=== PATIENT | male | born 2000 | race Caucasian/White ===

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

== ENCOUNTER 2024-06-26 17:23 | Emergency (ER) | payer MEDICARE, OTHER ==
[~2024-06-26] VITALS: Ht 175.3 cm; Wt 78.0 kg
[~2024-06-26 17:23] MED LIST: DIVA125T2 PO; GABA-1181 PO; OLAN10TA74 PO; PANT-31 PO
[2024-06-26 17:25] VITALS: TEMP 98
[2024-06-26 19:58] VITALS: BP 119/72; PULSE 95; RESP 16; O2SAT 98
[2024-06-26] MEDS: DiphenhydrAMINE HCL 50 MG/ML VIAL IVP ONE (20:53)
[2024-06-26] MEDS: SODIUM CHLORIDE 0.9% 1,000 ML IV ONE (20:53)
[2024-06-26] MEDS: HYDROmorphone HCL 2 MG/ML SYRINGE IVP ONE ×2 (20:54→22:26)
== END 2024-06-26 23:56 | disposition home or self-care (01) ==
LOC: EMS 17:25
DX: E86.0 Dehydration (principal); G89.29 Other chronic pain; F31.9 Bipolar disorder, unspecified; K50.90 Crohn's disease, unspecified, without complications; Z98.890 Other specified postprocedural states; Z66 Do not resuscitate; Z88.1 Allergy status to other antibiotic agents; Z88.5 Allergy status to narcotic agent; Z91.013 Allergy to seafood
CPT/HCPCS: 99284; 96374; 96361; 96375; 96376; J1200; J1171; J7030

== ENCOUNTER 2024-06-27 22:52 | Emergency (ER) | payer MEDICARE, OTHER ==
[~2024-06-27] VITALS: Ht 185.4 cm; Wt 96.0 kg
[2024-06-27 23:08] VITALS: BP 134/92; PULSE 108; RESP 16; TEMP 98.9; O2SAT 98
== END 2024-06-28 02:03 | disposition left against medical advice (07) ==
LOC: EMS 22:52
DX: R10.9 Unspecified abdominal pain (principal); F31.9 Bipolar disorder, unspecified; F43.12 Post-traumatic stress disorder, chronic; K50.90 Crohn's disease, unspecified, without complications; F64.0 Transsexualism; Z88.1 Allergy status to other antibiotic agents; Z88.5 Allergy status to narcotic agent
CPT/HCPCS: 99281; Z7502

== ENCOUNTER 2024-07-24 20:47 | Emergency (ER) | payer MEDICARE, OTHER ==
[~2024-07-24] VITALS: Ht 185.4 cm; Wt 98.0 kg
[2024-07-24 20:49] VITALS: TEMP 99.2
[2024-07-24] MEDS: FentaNYL CITRATE PF 100 MCG/2 ML VIAL IVP ONE (22:41)
[2024-07-24] MEDS: SODIUM CHLORIDE 0.9% 1,000 ML IV ONE (22:41)
[2024-07-24] MEDS: ONDANSETRON HCL 4 MG/2 ML VIAL IVP ONE (22:42)
[2024-07-24 23:17] LABS: BASOPHILS % (AUTO) 1.9 % (0.0-2.0); EOSINOPHILS % (AUTO) 3.5 % (1.0-6.0); HEMATOCRIT 35.4 % (41-53); HEMOGLOBIN 11.1 g/dL (13.5-17.5); LYMPHOCYTES # (AUTO) 2.4 K/uL (1.0-4.8); LYMPHOCYTES % (AUTO) 23.6 % (22.0-44.0); MEAN CORPUSCULAR HEMOGLOBIN 22.2 pg (26.0-34.0); MEAN CORPUSCULAR HGB CONC 31.4 G/dL (31.0-37.0); MEAN CORPUSCULAR VOLUME 71 fL (80-100); MONOCYTES # (AUTO) 0.6 K/uL (0.1-1.0); MONOCYTES % (AUTO) 5.9 % (2.0-9.0); NEUTROPHILS # (AUTO) 6.6 K/uL (1.8-7.7); NEUTROPHILS % (AUTO) 65.1 % (40.0-70.0); PLATELET COUNT (AUTO) 351 K/uL (150-450); RED BLOOD CELL COUNT(AUTO) 5.01 MIL/uL (4.50-5.90); RED CELL DISTRIBUTION WIDTH 18.2 % (11.5-14.5); WHITE BLOOD COUNT (AUTO) 10.1 K/uL (4.5-11.0)
[2024-07-24 23:19] LABS: ANION GAP 11 mmol/L (8-16); CALCIUM, TOTAL 9.3 mg/dL (8.8-10.5); CARBON DIOXIDE 27 mmol/L (22-29); CHLORIDE 99 mmol/L (98-107); CREATININE 0.64 mg/dL (0.60-1.30); GLOMERULAR FILTR. RATE CALC > 60 mL/min (>60); GLUCOSE,RANDOM 188 mg/dL (70-110); LIPASE 20 U/L (16-77); POTASSIUM 3.8 mmol/L (3.5-5.1); SODIUM SERUM 137 mmol/L (136-145); UREA NITROGEN, BLOOD 9 mg/dL (7-18)
[2024-07-24 23:36] LABS: RBC MORPHOLOGY COMMENT ABNORMAL RBC MORPH
[2024-07-24] MEDS ORDERED: ONDA-104 PO (23:49)
[2024-07-24] MEDS ORDERED: PRED-554 PO (23:50)
[2024-07-25 00:15] VITALS: BP 122/82; PULSE 95; RESP 16; O2SAT 98
== END 2024-07-25 00:30 | disposition home or self-care (01) ==
LOC: EMS 20:47
DX: R10.13 Epigastric pain (principal); F31.9 Bipolar disorder, unspecified; Z88.1 Allergy status to other antibiotic agents; Z88.5 Allergy status to narcotic agent; Z91.013 Allergy to seafood; Z88.8 Allergy status to other drugs, medicaments and biological substances
CPT/HCPCS: 99284; 96374; 96361; 96375; 80048; 83690; 85025; 36415; J3010; J2405; J7030

== ENCOUNTER 2024-08-19 17:49 | Emergency (ER) | payer MEDICARE, OTHER ==
[~2024-08-19] VITALS: Ht 185.4 cm; Wt 90.0 kg
[~2024-08-19 17:49] MED LIST changes: +ONDA-104 PO; +PRED-554 PO
[2024-08-19 18:17] VITALS: BP 132/68; PULSE 90; RESP 18; TEMP 97.9; O2SAT 99
== END 2024-08-19 20:24 | disposition left against medical advice (07) ==
LOC: EMS 17:50
DX: R10.84 Generalized abdominal pain (principal); Z53.21 Procedure and treatment not carried out due to patient leaving prior to being seen by health care provider

== ENCOUNTER → 2025-01-17 | Emergency (ER) | payer MEDICARE, OTHER ==
[~2025-01-17] VITALS: Ht 185.4 cm; Wt 80.0 kg
[~2025-01-17] MED LIST changes: +ACET-3385 PO; +DIPH50VI13 IVP; +HYDR2CAR IVP
[2025-01-17 04:16] VITALS: TEMP 98.2
[2025-01-17 06:14] LABS: ALBUMIN 3.5 g/dL (3.4-5.0); BILIRUBIN,DIRECT 0.2 mg/dL (0.00-0.20); BILIRUBIN,TOTAL 0.6 mg/dL (0.1-1.0); TOTAL PROTEIN, SERUM 7.3 g/dL (6.4-8.2)
[2025-01-17 06:17] LABS: BASOPHILS % (AUTO) 1.1 % (0.0-2.0); EOSINOPHILS % (AUTO) 3.7 % (1.0-6.0); HEMATOCRIT 26.8 % (41-53); HEMOGLOBIN 8.4 g/dL (13.5-17.5); LYMPHOCYTES # (AUTO) 1.7 K/uL (1.0-4.8); LYMPHOCYTES % (AUTO) 26.6 % (22.0-44.0); MEAN CORPUSCULAR HEMOGLOBIN 21.3 pg (26.0-34.0); MEAN CORPUSCULAR HGB CONC 31.2 G/dL (31.0-37.0); MEAN CORPUSCULAR VOLUME 68 fL (80-100); MONOCYTES # (AUTO) 0.5 K/uL (0.1-1.0); MONOCYTES % (AUTO) 7.5 % (2.0-9.0); NEUTROPHILS # (AUTO) 3.9 K/uL (1.8-7.7); NEUTROPHILS % (AUTO) 61.1 % (40.0-70.0); PLATELET COUNT (AUTO) 558 K/uL (150-450); RED BLOOD CELL COUNT(AUTO) 3.92 MIL/uL (4.50-5.90); RED CELL DISTRIBUTION WIDTH 19.6 % (11.5-14.5); WHITE BLOOD COUNT (AUTO) 6.4 K/uL (4.5-11.0)
[2025-01-17 06:24] LABS: ANION GAP 13 mmol/L (8-16); CALCIUM, TOTAL 9.1 mg/dL (8.8-10.5); CARBON DIOXIDE 26 mmol/L (22-29); CHLORIDE 100 mmol/L (98-107); GLOMERULAR FILTR. RATE CALC > 60 mL/min (>60); GLUCOSE,RANDOM 213 mg/dL (70-110); POTASSIUM 4.1 mmol/L (3.5-5.1); SODIUM SERUM 139 mmol/L (136-145); UREA NITROGEN, BLOOD 10 mg/dL (7-18)
[2025-01-17] MEDS: ONDANSETRON HCL 4 MG/2 ML VIAL IVP ONE (06:37)
[2025-01-17] MEDS: ACETAMINOPHEN 1000 MG/ISO-OSM 100 ML IV ONE (06:37)
[2025-01-17 06:51] LABS: RBC MORPHOLOGY COMMENT ABNORMAL RBC MORPH
[2025-01-17 07:03] VITALS: BP 123/77; PULSE 73; RESP 15; O2SAT 100
== END | disposition home or self-care (01) ==
LOC: EMS 04:06
DX: R11.2 Nausea with vomiting, unspecified (principal); Z79.52 Long term (current) use of systemic steroids; Z88.1 Allergy status to other antibiotic agents; Z88.5 Allergy status to narcotic agent; Z79.899 Other long term (current) drug therapy
CPT/HCPCS: 99284; 96365; 96375; 80048; 80076; 85025; 36415; J2405; J0131

== ENCOUNTER 2025-02-02 23:30 | Emergency (ER) | payer MEDICARE, OTHER ==
[~2025-02-02] VITALS: Ht 185.4 cm; Wt 98.0 kg
[~2025-02-02 23:30] MED LIST changes: +DIPH50VI13 IM; -DIPH50VI13 IVP; -DIVA125T2 PO; -GABA-1181 PO; -OLAN10TA74 PO; -ONDA-104 PO; -PRED-554 PO
[2025-02-02 23:41] VITALS: BP 125/88; PULSE 88; RESP 16; TEMP 98.2; O2SAT 100
[2025-02-03] MEDS: ACETAMINOPHEN 1000 MG/ISO-OSM 100 ML IV ONE (00:56)
[2025-02-03 01:06] LABS: HEMATOCRIT 28.3 % (41-53); HEMOGLOBIN 8.8 g/dL (13.5-17.5); LYMPHOCYTES # (AUTO) 2.4 K/uL (1.0-4.8); LYMPHOCYTES % (AUTO) 33.4 % (22.0-44.0); MEAN CORPUSCULAR HEMOGLOBIN 21.6 pg (26.0-34.0); MEAN CORPUSCULAR HGB CONC 31.2 G/dL (31.0-37.0); MEAN CORPUSCULAR VOLUME 69 fL (80-100); MONOCYTES # (AUTO) 0.6 K/uL (0.1-1.0); MONOCYTES % (AUTO) 7.9 % (2.0-9.0); NEUTROPHILS # (AUTO) 3.7 K/uL (1.8-7.7); NEUTROPHILS % (AUTO) 52.7 % (40.0-70.0); PLATELET COUNT (AUTO) 259 K/uL (150-450); RED BLOOD CELL COUNT(AUTO) 4.09 MIL/uL (4.50-5.90); RED CELL DISTRIBUTION WIDTH 21.8 % (11.5-14.5)
[2025-02-03 01:18] LABS: CALCIUM, TOTAL 8.6 mg/dL (8.8-10.5); CHLORIDE 102 mmol/L (98-107); CREATININE 0.97 mg/dL (0.60-1.30); GLOMERULAR FILTR. RATE CALC > 60 mL/min (>60); GLUCOSE,RANDOM 300 mg/dL (70-110); SODIUM SERUM 135 mmol/L (136-145); UREA NITROGEN, BLOOD 9 mg/dL (7-18)
[2025-02-03 01:29] LABS: ANION GAP 6 mmol/L (8-16); CARBON DIOXIDE 27 mmol/L (22-29)
[2025-02-03] MEDS: DiphenhydrAMINE HCL 50 MG/ML VIAL IVP ONE (01:45)
== END 2025-02-03 01:53 | disposition home or self-care (01) ==
LOC: EMS 23:36
DX: K94.09 Other complications of colostomy (principal); K50.911 Crohn's disease, unspecified, with rectal bleeding; Z91.013 Allergy to seafood; Z88.1 Allergy status to other antibiotic agents; Z88.5 Allergy status to narcotic agent; Z90.49 Acquired absence of other specified parts of digestive tract; Z79.899 Other long term (current) drug therapy
CPT/HCPCS: 99284; 80048; 85025; 36415; 96365; 96375; J1200; J0131

== ENCOUNTER 2025-07-10 11:12 | Inpatient (IN) | payer MEDICARE, OTHER ==
[~2025-07-10] VITALS: Ht 185.4 cm; Wt 85.0 kg
[~2025-07-10 11:12] MED LIST changes: -ACET-3385 PO; +ACET-66 IV; +DIPH25CA85 IV; -DIPH50VI13 IM; +HYDR250V6 IVP; -HYDR2CAR IVP; -PANT-31 PO; +PANT40VI15 IVP
[2025-07-10] MEDS ORDERED: IOHEXOL 350 MG/ML 100 ML VIAL ONE (11:43)
[2025-07-10] MEDS ORDERED: SODIUM CHLORIDE 0.9% 100 ML ONE (11:43)
[2025-07-10 11:44] LABS: PLATELET COUNT (AUTO) 464 K/uL (150-450); RED BLOOD CELL COUNT(AUTO) 4.77 MIL/uL (4.50-5.90); RED CELL DISTRIBUTION WIDTH 18.5 % (11.5-14.5); WHITE BLOOD COUNT (AUTO) 10.1 K/uL (4.5-11.0)
[2025-07-10 11:54] LABS: CALCIUM, TOTAL 9.0 mg/dL (8.8-10.5); CREATININE 1.00 mg/dL (0.60-1.30); GLOMERULAR FILTR. RATE CALC > 60 mL/min (>60); GLUCOSE,RANDOM 322 mg/dL (70-110); SODIUM SERUM 136 mmol/L (136-145); UREA NITROGEN, BLOOD 5 mg/dL (7-18)
[2025-07-10 12:00] LABS: ASPARTATE AMINOTRANSFERASE 16 U/L (15-37); CREATINE KINASE, TOTAL ONLY 24 U/L (39-308); TOTAL PROTEIN, SERUM 7.9 g/dL (6.4-8.2)
[2025-07-10 12:02] LABS: TROPONIN I-HIGH SENSITIVITY Less Than 4 ng/L (<76)
[2025-07-10 12:03] LABS: RBC MORPHOLOGY COMMENT ABNORMAL RBC MORPH
[2025-07-10] MEDS: ACETAMINOPHEN 1000 MG/ISO-OSM 100 ML IV ONE (13:27)
[2025-07-10] MEDS: SODIUM CHLORIDE 0.9% 1,000 ML IV ONE (13:30)
[2025-07-10] MEDS ORDERED: ONDANSETRON HCL 4 MG/2 ML VIAL IVP PRN (14:15)
[2025-07-10] MEDS ORDERED: ACETAMINOPHEN 325 MG TABLET PO PRN (14:15)
[2025-07-10] MEDS: HEPARIN SODIUM,PORCINE 5,000 UNITS/ML VIAL SQ SCH (14:26)
[2025-07-10] MEDS: DOCUSATE SODIUM 100 MG CAPSULE PO SCH (20:05)
[2025-07-10 21:45] VITALS: BP 114/75; PULSE 101; RESP 20; TEMP 99.3; O2SAT 99
[2025-07-10] MEDS ORDERED: ERTA1VIA9 IVP (22:31)
[2025-07-10] MEDS ORDERED: NALOXONE HCL 1 MG/ML 2 ML SYRINGE IVP PRN (22:45)
[2025-07-10] MEDS: *CLINICAL-MEROPENEM DOSING CLINICAL ONE (22:52)
[2025-07-10 23:34] VITALS: BP 113/69; PULSE 104; RESP 19; TEMP 99.3; O2SAT 98
[2025-07-11] MEDS ORDERED: SODIUM CHLORIDE 0.9% 250 ML IV ONE (00:18)
[2025-07-11] MEDS: MEROPENEM 2 GM in SODIUM CHLORIDE 0.9% 100 ML IV SCH ×2 (00:34→00:46)
[2025-07-11 06:00] VITALS: BP 110/74; PULSE 95; RESP 19; TEMP 98.8; O2SAT 96
[2025-07-11 10:30] VITALS: BP 112/78; PULSE 96; RESP 18; TEMP 98.1; O2SAT 97
[2025-07-11] MEDS: INSULIN LISPRO 100 UNITS/ML SQ PRN (12:43)
[2025-07-11] MEDS ORDERED: DEXTROSE 50%-WATER 25 GM/50 ML SYRINGE IVP PRN ×2 (12:45→13:30)
[2025-07-11] MEDS ORDERED: NALOXONE HCL 1 MG/ML 2 ML SYRINGE IVP PRN (12:45)
[2025-07-11] MEDS: MEROPENEM 1 GM in SODIUM CHLORIDE 0.9% 50 ML IV SCH (15:03)
[2025-07-11 15:53] VITALS: BP 107/81; PULSE 92; RESP 19; TEMP 99; O2SAT 96
[2025-07-11 16:56] LABS: GLUCOMETER DEV NAME(LOC) 5N.2C; GLUCOSE,POINT OF CARE 333 MG/DL (70-110)
[2025-07-11 19:53] VITALS: BP 104/63; PULSE 112; RESP 18; TEMP 99.7; O2SAT 98
[2025-07-11] MEDS: INSULIN GLARGINE,HUM.REC.ANLOG 100 UNITS/ML SQ SCH (21:00)
[2025-07-11 21:41] LABS: GLUCOMETER DEV NAME(LOC) 5S.1E; GLUCOSE,POINT OF CARE 100 MG/DL (70-110)
[2025-07-11 23:48] VITALS: BP 112/70; PULSE 102; RESP 20; TEMP 98.8; O2SAT 97
[2025-07-12 03:38] VITALS: BP 100/63; PULSE 85; RESP 19; TEMP 98.1; O2SAT 97
[2025-07-12] MEDS: INSULIN LISPRO 100 UNITS/ML SQ PRN (06:41)
[2025-07-12] MEDS ORDERED: NALO4SPR NASAL (10:52)
[2025-07-12] MEDS ORDERED: HYDR2TAB37 PO (10:53)
[2025-07-12 12:16] LABS: GLUCOMETER DEV NAME(LOC) 5N.2C; GLUCOSE,POINT OF CARE 304 MG/DL (70-110)
[2025-07-12 16:12] VITALS: BP 113/71; PULSE 96; RESP 18; TEMP 98.6; O2SAT 97
[2025-07-12 21:02] VITALS: BP 98/65; PULSE 107; RESP 19; TEMP 99.3; O2SAT 97
[2025-07-12 23:13] VITALS: BP 122/76; PULSE 112; RESP 19; TEMP 100.9; O2SAT 97
[2025-07-13 03:20] VITALS: BP 96/68; PULSE 89; RESP 20; TEMP 98.2; O2SAT 96
[2025-07-13] MEDS ORDERED: DIPH-1164 PO (15:55)
== END 2025-07-13 16:10 | disposition home health service (06) | DRG 175 ==
LOC: EMS 11:13 → EDH 14:06 → 5S 21:47
PROVIDERS: ADMIT Internal Medicine; ATTEND Internal Medicine
DX: I26.99 Other pulmonary embolism without acute cor pulmonale (principal); E43 Unspecified severe protein-calorie malnutrition; K50.90 Crohn's disease, unspecified, without complications; R91.8 Other nonspecific abnormal finding of lung field; D64.9 Anemia, unspecified; Z66 Do not resuscitate; F31.9 Bipolar disorder, unspecified; F41.9 Anxiety disorder, unspecified; Z79.01 Long term (current) use of anticoagulants; Z86.711 Personal history of pulmonary embolism; Z88.1 Allergy status to other antibiotic agents; Z88.5 Allergy status to narcotic agent; Z88.8 Allergy status to other drugs, medicaments and biological substances; Z91.199 Patient's noncompliance with other medical treatment and regimen due to unspecified reason; Z76.5 Malingerer [conscious simulation]; Z68.24 Body mass index [BMI] 24.0-24.9, adult
CPT/HCPCS: 71045; 71275; 80048; 80076; 82550; 82962; 83880; 84484; 85025; 85610; 85730; 87081; 93005; 93970; 99285; J0131; J1171; J1200; J1644; J1815; J2185; J7050; 36415-L1; 36415-TC

== ENCOUNTER → 2025-07-15 | Emergency (ER) | payer MEDICARE, OTHER ==
[~2025-07-15] VITALS: Ht 185.4 cm; Wt 85.0 kg
[~2025-07-15] MED LIST changes: +DIPH-1164 PO; -DIPH25CA85 IV; +ERTA1VIA9 IVP; +HYDR2TAB37 PO; +NALO4SPR NASAL
[2025-07-15 22:01] VITALS: TEMP 99.7
[2025-07-15] MEDS: METOCLOPRAMIDE HCL 5 MG/ML 2 ML VIAL IVP ONE (23:41)
[2025-07-15] MEDS: SODIUM CHLORIDE 0.9% 1,000 ML IV ONE (23:53)
[2025-07-16] MEDS: ACETAMINOPHEN 650 MG/ISO-OSM 65 ML IV ONE (00:27)
[2025-07-16 01:58] VITALS: BP 98/55; PULSE 97; RESP 16; O2SAT 97
== END | disposition still patient (30) ==
LOC: EMS 22:00
DX: R10.9 Unspecified abdominal pain (principal); R11.0 Nausea; F31.9 Bipolar disorder, unspecified; K50.911 Crohn's disease, unspecified, with rectal bleeding; F41.9 Anxiety disorder, unspecified; Z79.01 Long term (current) use of anticoagulants; Z86.711 Personal history of pulmonary embolism; Z88.0 Allergy status to penicillin; Z88.1 Allergy status to other antibiotic agents; Z88.5 Allergy status to narcotic agent; Z91.013 Allergy to seafood; Z79.899 Other long term (current) drug therapy
CPT/HCPCS: 99284; 96374; 96361; 96375; J1171; J2765; J7030; 93005; J0131

== ENCOUNTER 2025-07-21 01:09 | Emergency (ER) | payer MEDICARE, OTHER ==
[~2025-07-21] VITALS: Ht 185.4 cm; Wt 79.0 kg
[2025-07-21] MEDS ORDERED: ACETAMINOPHEN 650 MG/ISO-OSM 65 ML IV ONE (02:00)
[2025-07-21] MEDS: SODIUM CHLORIDE 0.9% 1,000 ML IV ONE (02:00)
[2025-07-21 04:36] VITALS: BP 119/68; PULSE 86; RESP 18; TEMP 97.3; O2SAT 97
== END 2025-07-21 05:00 | disposition home or self-care (01) ==
LOC: EMS 01:10
DX: R19.7 Diarrhea, unspecified (principal); E86.0 Dehydration; F31.9 Bipolar disorder, unspecified; F41.9 Anxiety disorder, unspecified; Z88.0 Allergy status to penicillin; Z88.1 Allergy status to other antibiotic agents; Z88.5 Allergy status to narcotic agent; Z86.711 Personal history of pulmonary embolism; Z91.013 Allergy to seafood; Z79.899 Other long term (current) drug therapy; Z98.890 Other specified postprocedural states
CPT/HCPCS: 99283; 96360; 96361; 71045; J7030; J0131

== ENCOUNTER 2025-07-21 21:28 | Emergency (ER) | payer MEDICARE, OTHER ==
[~2025-07-21] VITALS: Ht 185.4 cm; Wt 79.0 kg
[2025-07-21 22:21] VITALS: TEMP 98.4
[2025-07-22 05:51] LABS: PLATELET COUNT (AUTO) 473 K/uL (150-450); RBC MORPHOLOGY COMMENT ABNORMAL RBC MORPH; RED BLOOD CELL COUNT(AUTO) 4.63 MIL/uL (4.50-5.90); RED CELL DISTRIBUTION WIDTH 18.2 % (11.5-14.5); WHITE BLOOD COUNT (AUTO) 5.9 K/uL (4.5-11.0)
[2025-07-22 05:58] LABS: CALCIUM, TOTAL 9.0 mg/dL (8.8-10.5); CREATININE 0.43 mg/dL (0.60-1.30); GLOMERULAR FILTR. RATE CALC > 60 mL/min (>60); GLUCOSE,RANDOM 303 mg/dL (70-110); SODIUM SERUM 138 mmol/L (136-145); UREA NITROGEN, BLOOD 7 mg/dL (7-18)
[2025-07-22 06:04] LABS: ASPARTATE AMINOTRANSFERASE 21 U/L (15-37); TOTAL PROTEIN, SERUM 7.6 g/dL (6.4-8.2)
[2025-07-22 06:07] LABS: LACTIC ACID 1.3 mmol/L (0.4-2.0)
[2025-07-22 08:55] LABS: APPEARANCE,URINE TURBID (CLEAR); GLUCOSE, URINE (UA) >=1000 mg/dL (NEGATIVE); LEUKOCYTE ESTERASE ,URINE NEGATIVE (NEGATIVE); NITRATE,URINE NEGATIVE (NEGATIVE); OCCULT BLOOD,URINE NEGATIVE (NEGATIVE); SPECIFIC GRAVITIY, URINE 1.035 (1.003-1.030)
[2025-07-22 09:12] LABS: AMORPHOUS SEDIMENT,UR Many /LPF (None Seen); CALCIUM OXALATE CRYSTALS,UR Moderate /LPF (None Seen)
[2025-07-22 11:00] VITALS: BP 114/82; PULSE 89; RESP 14; O2SAT 97
== END 2025-07-22 13:19 | disposition home or self-care (01) ==
LOC: EMS 21:28
DX: K58.9 Irritable bowel syndrome, unspecified (principal); F41.9 Anxiety disorder, unspecified; A41.9 Sepsis, unspecified organism; F31.9 Bipolar disorder, unspecified; B95.2 Enterococcus as the cause of diseases classified elsewhere; Z86.711 Personal history of pulmonary embolism; Z88.0 Allergy status to penicillin; Z88.1 Allergy status to other antibiotic agents; Z88.5 Allergy status to narcotic agent; Z91.013 Allergy to seafood; Z98.890 Other specified postprocedural states; Z79.899 Other long term (current) drug therapy
CPT/HCPCS: 99285; 80048; 80076; 81001; 82962; 83605; 85025; 85610; 87040; 36415; 84145; 96374; 71045; 93005; J1171

== ENCOUNTER 2025-08-03 16:37 | Emergency (ER) | payer MEDICARE, OTHER ==
[~2025-08-03] VITALS: Ht 185.4 cm; Wt 81.9 kg
[2025-08-03 20:39] LABS: PLATELET COUNT (AUTO) 365 K/uL (150-450); RED BLOOD CELL COUNT(AUTO) 5.11 MIL/uL (4.50-5.90); RED CELL DISTRIBUTION WIDTH 18.5 % (11.5-14.5); WHITE BLOOD COUNT (AUTO) 6.2 K/uL (4.5-11.0)
[2025-08-03 20:44] LABS: CALCIUM, TOTAL 9.4 mg/dL (8.8-10.5); CREATININE 0.68 mg/dL (0.60-1.30); GLOMERULAR FILTR. RATE CALC > 60 mL/min (>60); GLUCOSE,RANDOM 303 mg/dL (70-110); SODIUM SERUM 136 mmol/L (136-145); UREA NITROGEN, BLOOD 6 mg/dL (7-18)
[2025-08-03 21:01] LABS: ASPARTATE AMINOTRANSFERASE 14.0 U/L (15-37); TOTAL PROTEIN, SERUM 7.8 g/dL (6.4-8.2)
[2025-08-03 21:18] LABS: RBC MORPHOLOGY COMMENT ABNORMAL RBC MORPH
[2025-08-03 22:08] LABS: APPEARANCE,URINE CLEAR (CLEAR); GLUCOSE, URINE (UA) >=1000 mg/dL (NEGATIVE); LEUKOCYTE ESTERASE ,URINE NEGATIVE (NEGATIVE); NITRATE,URINE NEGATIVE (NEGATIVE); OCCULT BLOOD,URINE NEGATIVE (NEGATIVE); SPECIFIC GRAVITIY, URINE 1.037 (1.003-1.030)
[2025-08-03 22:17] LABS: SQUAMOUS EPITHELIAL CELL,UR Few /LPF (None Seen)
[2025-08-03] MEDS ORDERED: INSLAN SQ (22:51)
[2025-08-03] MEDS ORDERED: PRED-554 PO (22:51)
[2025-08-03] MEDS: INSULIN REGULAR, HUMAN 100 UNITS/ML SQ ONE (22:59)
[2025-08-03 23:00] VITALS: BP 141/73; PULSE 98; RESP 20; TEMP 97.3; O2SAT 95
== END 2025-08-03 23:34 | disposition home or self-care (01) ==
LOC: EMS 16:37
DX: E11.65 Type 2 diabetes mellitus with hyperglycemia (principal); R10.84 Generalized abdominal pain; F31.9 Bipolar disorder, unspecified; K50.90 Crohn's disease, unspecified, without complications; Z98.890 Other specified postprocedural states; Z79.4 Long term (current) use of insulin; Z79.52 Long term (current) use of systemic steroids; Z88.0 Allergy status to penicillin; Z86.711 Personal history of pulmonary embolism; Z88.1 Allergy status to other antibiotic agents; Z88.5 Allergy status to narcotic agent; Z91.013 Allergy to seafood; Z93.3 Colostomy status; Z79.899 Other long term (current) drug therapy
CPT/HCPCS: 99283; 80048; 80076; 81001; 83690; 85025; 36415; J1815

== ENCOUNTER 2025-08-13 19:08 | Emergency (ER) | payer MEDICARE, OTHER ==
[~2025-08-13] VITALS: Ht 185.4 cm; Wt 76.8 kg
[~2025-08-13 19:08] MED LIST changes: -ACET-66 IV; -ERTA1VIA9 IVP; -HYDR250V6 IVP; +INSLAN SQ; -PANT40VI15 IVP
[2025-08-13 19:16] VITALS: BP 124/85; PULSE 104; RESP 18; TEMP 99.1; O2SAT 99
[2025-08-13 21:32] LABS: PLATELET COUNT (AUTO) 344 K/uL (150-450); RED BLOOD CELL COUNT(AUTO) 5.49 MIL/uL (4.50-5.90); RED CELL DISTRIBUTION WIDTH 19.8 % (11.5-14.5); WHITE BLOOD COUNT (AUTO) 8.2 K/uL (4.5-11.0)
[2025-08-13 21:40] LABS: CALCIUM, TOTAL 9.6 mg/dL (8.8-10.5); CREATININE 0.59 mg/dL (0.60-1.30); GLOMERULAR FILTR. RATE CALC > 60 mL/min (>60); GLUCOSE,RANDOM 193 mg/dL (70-110); SODIUM SERUM 136 mmol/L (136-145); UREA NITROGEN, BLOOD 8 mg/dL (7-18)
[2025-08-13 21:46] LABS: RBC MORPHOLOGY COMMENT ABNORMAL RBC MORPH
== END 2025-08-13 22:22 | disposition home or self-care (01) ==
LOC: EMS 19:08
DX: R10.9 Unspecified abdominal pain (principal); G89.29 Other chronic pain; J90 Pleural effusion, not elsewhere classified; F31.9 Bipolar disorder, unspecified; F41.9 Anxiety disorder, unspecified; Z86.711 Personal history of pulmonary embolism; Z88.0 Allergy status to penicillin; Z88.1 Allergy status to other antibiotic agents; Z88.5 Allergy status to narcotic agent; Z91.013 Allergy to seafood; Z93.3 Colostomy status; Z79.899 Other long term (current) drug therapy
CPT/HCPCS: 71045; 80048; 85025; 87040; 99284; 36415-L1; 36415-TC

== ENCOUNTER 2025-08-14 21:15 | Emergency (ER) | payer MEDICARE, OTHER ==
[~2025-08-14] VITALS: Ht 185.4 cm; Wt 77.3 kg
[2025-08-14 21:30] VITALS: TEMP 98.1
[2025-08-14 22:47] VITALS: BP 135/87; PULSE 95; RESP 16; O2SAT 99
[2025-08-15] MEDS: METOCLOPRAMIDE HCL 5 MG/ML 2 ML VIAL IVP ONE (00:19)
[2025-08-15] MEDS: SODIUM CHLORIDE 0.9% 1,000 ML IV ONE (00:19)
[2025-08-15] MEDS: KETOROLAC TROMETHAMINE 30 MG/ML VIAL IVP ONE (00:21)
[2025-08-15 00:37] LABS: PLATELET COUNT (AUTO) 346 K/uL (150-450); RED BLOOD CELL COUNT(AUTO) 5.34 MIL/uL (4.50-5.90); RED CELL DISTRIBUTION WIDTH 20.1 % (11.5-14.5); WHITE BLOOD COUNT (AUTO) 8.2 K/uL (4.5-11.0)
[2025-08-15 00:41] LABS: RBC MORPHOLOGY COMMENT ABNORMAL RBC MORPH
[2025-08-15 00:45] LABS: CALCIUM, TOTAL 9.4 mg/dL (8.8-10.5); CREATININE 0.61 mg/dL (0.60-1.30); GLOMERULAR FILTR. RATE CALC > 60 mL/min (>60); GLUCOSE,RANDOM 144 mg/dL (70-110); SODIUM SERUM 137 mmol/L (136-145); UREA NITROGEN, BLOOD 7 mg/dL (7-18)
[2025-08-15 01:10] LABS: TROPONIN I-HIGH SENSITIVITY 4 ng/L (<76)
== END 2025-08-15 02:31 | disposition home or self-care (01) ==
LOC: EMS 21:15
DX: R55 Syncope and collapse (principal); F31.9 Bipolar disorder, unspecified; F41.9 Anxiety disorder, unspecified; Z88.0 Allergy status to penicillin; Z86.711 Personal history of pulmonary embolism; Z88.1 Allergy status to other antibiotic agents; Z88.5 Allergy status to narcotic agent; Z91.013 Allergy to seafood; Z79.899 Other long term (current) drug therapy; Z98.890 Other specified postprocedural states
CPT/HCPCS: 99284; 80048; 84484; 85025; 36415; 93005; 96374; J2765; J7030; J1885

== ENCOUNTER 2025-08-18 20:29 | Emergency (ER) | payer MEDICARE, OTHER ==
[~2025-08-18] VITALS: Ht 185.4 cm; Wt 76.4 kg
[2025-08-18 20:38] VITALS: TEMP 98.8
[2025-08-18 21:19] LABS: PLATELET COUNT (AUTO) 328 K/uL (150-450); RED BLOOD CELL COUNT(AUTO) 5.37 MIL/uL (4.50-5.90); RED CELL DISTRIBUTION WIDTH 21.5 % (11.5-14.5); WHITE BLOOD COUNT (AUTO) 6.8 K/uL (4.5-11.0)
[2025-08-18 21:26] LABS: CALCIUM, TOTAL 9.8 mg/dL (8.8-10.5); CREATININE 0.57 mg/dL (0.60-1.30); GLOMERULAR FILTR. RATE CALC > 60 mL/min (>60); GLUCOSE,RANDOM 288 mg/dL (70-110); SODIUM SERUM 138 mmol/L (136-145); UREA NITROGEN, BLOOD 9 mg/dL (7-18)
[2025-08-18 21:32] LABS: ASPARTATE AMINOTRANSFERASE 18.0 U/L (15-37); TOTAL PROTEIN, SERUM 8.2 g/dL (6.4-8.2)
[2025-08-18 21:35] LABS: APPEARANCE,URINE CLEAR (CLEAR); GLUCOSE, URINE (UA) >=1000 mg/dL (NEGATIVE); LEUKOCYTE ESTERASE ,URINE NEGATIVE (NEGATIVE); NITRATE,URINE NEGATIVE (NEGATIVE); OCCULT BLOOD,URINE NEGATIVE (NEGATIVE); SPECIFIC GRAVITIY, URINE 1.032 (1.003-1.030)
[2025-08-18 21:55] LABS: SQUAMOUS EPITHELIAL CELL,UR Rare /LPF (None Seen)
[2025-08-18 22:50] VITALS: BP 127/82; PULSE 96; RESP 16; O2SAT 99
== END 2025-08-18 23:03 | disposition home or self-care (01) ==
LOC: EMS 20:29
DX: G89.29 Other chronic pain (principal); R10.9 Unspecified abdominal pain; F31.9 Bipolar disorder, unspecified; F41.9 Anxiety disorder, unspecified; K50.90 Crohn's disease, unspecified, without complications; Z86.711 Personal history of pulmonary embolism; Z88.0 Allergy status to penicillin; Z88.1 Allergy status to other antibiotic agents; Z88.5 Allergy status to narcotic agent; Z90.49 Acquired absence of other specified parts of digestive tract; Z91.013 Allergy to seafood; Z93.2 Ileostomy status
CPT/HCPCS: 80048; 80076; 81001; 83690; 85025; 99283

== ENCOUNTER 2025-08-21 19:28 | Emergency (ER) | payer MEDICARE, OTHER ==
[~2025-08-21] VITALS: Ht 185.4 cm; Wt 75.0 kg
[2025-08-21 22:49] LABS: PLATELET COUNT (AUTO) 271 K/uL (150-450); RED BLOOD CELL COUNT(AUTO) 4.86 MIL/uL (4.50-5.90); RED CELL DISTRIBUTION WIDTH 20.4 % (11.5-14.5); WHITE BLOOD COUNT (AUTO) 6.3 K/uL (4.5-11.0)
[2025-08-21 22:58] LABS: CALCIUM, TOTAL 8.8 mg/dL (8.8-10.5); CREATININE 0.50 mg/dL (0.60-1.30); GLOMERULAR FILTR. RATE CALC > 60 mL/min (>60); GLUCOSE,RANDOM 165 mg/dL (70-110); SODIUM SERUM 137 mmol/L (136-145); UREA NITROGEN, BLOOD 8 mg/dL (7-18)
[2025-08-21 23:04] LABS: ASPARTATE AMINOTRANSFERASE 31.0 U/L (15-37); TOTAL PROTEIN, SERUM 6.9 g/dL (6.4-8.2)
[2025-08-21] MEDS ORDERED: PANT-31 PO (23:30)
[2025-08-21 23:54] VITALS: BP 117/67; PULSE 88; RESP 16; TEMP 97.3; O2SAT 100
[2025-08-21] MEDS: PANTOPRAZOLE SODIUM 40 MG DR TABLET PO ONE (23:54)
== END 2025-08-22 00:36 | disposition home or self-care (01) ==
LOC: EMS 19:36
DX: R10.9 Unspecified abdominal pain (principal); R11.2 Nausea with vomiting, unspecified; F31.9 Bipolar disorder, unspecified; F41.9 Anxiety disorder, unspecified; Z98.890 Other specified postprocedural states; Z86.711 Personal history of pulmonary embolism; Z88.0 Allergy status to penicillin; Z88.1 Allergy status to other antibiotic agents; Z88.5 Allergy status to narcotic agent; Z91.013 Allergy to seafood; Z79.899 Other long term (current) drug therapy; Z53.29 Procedure and treatment not carried out because of patient's decision for other reasons
CPT/HCPCS: 80048; 80076; 83690; 85025; 99283

== ENCOUNTER 2025-08-24 22:19 | Emergency (ER) | payer MEDICARE, OTHER ==
[~2025-08-24] VITALS: Ht 185.4 cm; Wt 75.0 kg
[~2025-08-24 22:19] MED LIST changes: +PANT-31 PO
[2025-08-24 22:24] VITALS: TEMP 98.2
[2025-08-24 23:56] LABS: PLATELET COUNT (AUTO) 311 K/uL (150-450); RED BLOOD CELL COUNT(AUTO) 4.77 MIL/uL (4.50-5.90); RED CELL DISTRIBUTION WIDTH 20.4 % (11.5-14.5); WHITE BLOOD COUNT (AUTO) 6.8 K/uL (4.5-11.0)
[2025-08-24 23:59] LABS: CALCIUM, TOTAL 9.1 mg/dL (8.8-10.5); CREATININE 0.58 mg/dL (0.60-1.30); GLOMERULAR FILTR. RATE CALC > 60 mL/min (>60); GLUCOSE,RANDOM 163 mg/dL (70-110); SODIUM SERUM 142 mmol/L (136-145); UREA NITROGEN, BLOOD 7 mg/dL (7-18)
[2025-08-25] MEDS ORDERED: ONDANSETRON HCL 4 MG/2 ML VIAL IVP PRN
[2025-08-25 00:04] LABS: ASPARTATE AMINOTRANSFERASE 27.0 U/L (15-37); TOTAL PROTEIN, SERUM 7.3 g/dL (6.4-8.2)
[2025-08-25 05:25] VITALS: BP 113/48; PULSE 82; RESP 18; O2SAT 97
== END 2025-08-25 05:36 | disposition left against medical advice (07) ==
LOC: EMS 22:29 → UNDOADMIN 23:51 → EDH 23:51 → EMS 08-25 05:36
DX: K92.2 Gastrointestinal hemorrhage, unspecified (principal); R10.9 Unspecified abdominal pain; F31.9 Bipolar disorder, unspecified; G89.29 Other chronic pain; F41.9 Anxiety disorder, unspecified; D64.9 Anemia, unspecified; Z86.711 Personal history of pulmonary embolism; Z88.0 Allergy status to penicillin; Z88.1 Allergy status to other antibiotic agents; Z88.5 Allergy status to narcotic agent; Z90.49 Acquired absence of other specified parts of digestive tract; Z91.013 Allergy to seafood; Z79.899 Other long term (current) drug therapy
CPT/HCPCS: 80048; 80076; 82271; 83690; 85025; 93005; 99284; 99285; G0378

== ENCOUNTER 2025-08-28 20:17 | Emergency (ER) | payer MEDICARE, OTHER ==
[~2025-08-28] VITALS: Ht 185.4 cm; Wt 77.3 kg
[~2025-08-28 20:17] MED LIST changes: -DIPH-1164 PO; -HYDR2TAB37 PO; -NALO4SPR NASAL
[2025-08-28 20:30] VITALS: TEMP 97.8
[2025-08-28 21:14] LABS: PLATELET COUNT (AUTO) 326 K/uL (150-450); RED BLOOD CELL COUNT(AUTO) 4.90 MIL/uL (4.50-5.90); RED CELL DISTRIBUTION WIDTH 21.0 % (11.5-14.5); WHITE BLOOD COUNT (AUTO) 5.1 K/uL (4.5-11.0)
[2025-08-28 21:25] LABS: CALCIUM, TOTAL 9.5 mg/dL (8.8-10.5); CREATININE 0.54 mg/dL (0.60-1.30); GLOMERULAR FILTR. RATE CALC > 60 mL/min (>60); GLUCOSE,RANDOM 135 mg/dL (70-110); SODIUM SERUM 141 mmol/L (136-145); UREA NITROGEN, BLOOD 9 mg/dL (7-18)
[2025-08-28 21:29] LABS: ASPARTATE AMINOTRANSFERASE 24.0 U/L (15-37); TOTAL PROTEIN, SERUM 8.0 g/dL (6.4-8.2)
[2025-08-28 22:46] VITALS: BP 113/64; PULSE 87; RESP 17; O2SAT 99
== END 2025-08-29 02:07 | disposition home or self-care (01) ==
LOC: EMS 20:17
DX: R00.2 Palpitations (principal); R10.84 Generalized abdominal pain; F31.9 Bipolar disorder, unspecified; F41.9 Anxiety disorder, unspecified; K50.90 Crohn's disease, unspecified, without complications; Z79.899 Other long term (current) drug therapy; Z86.711 Personal history of pulmonary embolism; Z88.0 Allergy status to penicillin; Z88.1 Allergy status to other antibiotic agents; Z88.5 Allergy status to narcotic agent; Z91.013 Allergy to seafood
CPT/HCPCS: 71250; 74176; 80048; 80076; 83690; 85025; 93005; 99284